=== PATIENT | female | born 1970 ===

== ENCOUNTER 2017-11-24 12:39 | Day surgery (SDC) | payer SELFPAY ==
[2017-11-11 12:29] VITALS: BMI 25.7
[2017-11-24] MEDS ORDERED: Bupivacaine 0.25% 20 ML INJ IJ ONE (14:01)
[2017-11-24] MEDS ORDERED: ceFAZolin 1 gm in NS 1 GM/100 ML BAG IVPB ONE (14:01)
[2017-11-24] MEDS ORDERED: ceFAZolin IV 2 gm in Dextrose 2 GM/50 ML BAG IVPB ONE (14:02)
[2017-11-24] MEDS ORDERED: Lidocaine/Epinephrine 1% 1:100000 10 ML IJ ONE (14:02)
[2017-11-24] MEDS ORDERED: Midazolam 2 MG/2 ML VIAL ONE (14:03)
[2017-11-24] MEDS ORDERED: Propofol 10 mg/ml Inj (20 ML) ONE (14:03)
[2017-11-24] MEDS ORDERED: Rocuronium 10 mg/ml (5 ml) ONE (14:05)
[2017-11-24] MEDS ORDERED: Neostigmine Methylsulfate 3mg/3ml Syringe IV ONE (14:50)
[2017-11-24] MEDS ORDERED: Oxycodone/Acetaminophen 5/325 mg Tab PO PRN (15:58)
--- NOTE | 2017-11-24 16:02 | PCM.SURG1 ---
Surgeon's Initial Post Op Note - Surgeon's Notes Surgeon: Dr. Álvarez Women[employer] Lac[employer] Coach: Dr. Wilson PGY4, Dr. Oliveira PGY3 Pre-Operative Diagnosis: symptomatic cholelithiasis Operative Findings: see operative report Post-Operative Diagnosis: see operative report Operation Performed: laparoscopic cholecystectomy Specimen/Specimens Removed: gallbladder Estimated Blood Loss: EBL {In ML}: 10 Blood Products Given: N/A Drains Used: No Drains Post-Op Condition: Good Date of Surgery/Procedure: 11/24/17 Time of Surgery/Procedure: 14:30
[2017-11-24] MEDS ORDERED: HYDROmorphone 0.5 mg/0.5 ml ISec IVP PRN (16:08)
[2017-11-24] MEDS ORDERED: Acetaminophen IV 1,000 MG in Premixed IV 1 EA IV PRN (16:09)
[2017-11-24] MEDS ORDERED: Lactated Ringer's 1,000 ML IV SCH (16:15)
[2017-11-24] MEDS ORDERED: HYDROmorphone 0.5 mg/0.5 ml ISec ONE (16:17)
[2017-11-24] MEDS ORDERED: Lactated Ringer's 1,000 ML IV ONE (17:00)
[2017-11-24 18:07] VITALS: RESP 16
[2017-11-24 18:54] VITALS: BP 110/59; PULSE 76; TEMP 97.6; O2SAT 100
--- NOTE | 2017-11-25 02:55 | OP ---
PROCEDURE DATE: 11/24/2017 PREOPERATIVE DIAGNOSES: 1. Cholelithiasis and abdominal pain. 2. Possible chronic cholecystitis. POSTOPERATIVE DIAGNOSIS: Cholelithiasis. OPERATION DONE: Laparoscopic cholecystectomy. SURGEON: Ronald Álvarez MD ASSISTANTS: Constantino Wilson DO and Dung Oliveira DO, PGY2 Resident. TYPE OF ANESTHESIA: General endotracheal tube anesthesia. ESTIMATED BLOOD LOSS: Around 10 mL. DRAINS: None. PATHOLOGY: The gallbladder with the gallstone was sent for the pathology. COMPLICATIONS: None. INTRAOPERATIVE FINDINGS: The patient had changes of chronic cholecystitis and cholelithiasis. DESCRIPTION OF PROCEDURE: On intraoperative steps, this is a 46-year-old female, who was diagnosed with cholelithiasis and abdominal pain and the patient was consenting for a laparoscopic cholecystectomy, possible open, brought to the OR, placed supine on the operating room table. After induction of general anesthesia, the abdomen was prepped and draped in the usual sterile fashion. A supraumbilical transverse incision was made after incising the skin, subcutaneous tissue, and the fascia. The Ivelisse port was placed. Pneumo was created. A 12-mm port was placed in the midline below costal margin, two 5-mm ports were placed in the midclavicular and anterior axillary line. After that, grasper and dissector were introduced and the gallbladder was retracted cranially. Calot's triangle dissection was done. Cystic duct and cystic artery were identified and clipped at three places and cut in between two clips in the gallbladder and gallbladder was dissected free from the gallbladder fossa. The critical view of the safety was identified. A top-down approach was also done before clipping the cystic duct and the gallbladder was taken in Endo Catch bag, taken out through the umbilical port site, and was sent off the table for pathology. There was no apparent complication. All the ports were taken out under vision and pneumo was deflated. Umbilical port site was closed in two layers, fascia with 0-Vicryl interrupted sutures, skin with a 4-0 Monocryl, and dry sterile dressing was applied. The patient was extubated in the OR and sent to the postanesthesia care unit in stable condition. Ronald Álvarez MD [facility] # [id number]
== END 2017-11-24 19:02 | disposition home or self-care (01) ==
LOC: C.SDS 12:39
PROVIDERS: ATTEND Surgery Surgical Critical Care
DX: K80.10 Calculus of gallbladder with chronic cholecystitis without obstruction (principal)
CPT/HCPCS: 36415; 47562; 84702; 88304; J0131; J0690; J1170; J2001; J2250; J2704; J2710; J3010; J7030; J7120